=== PATIENT | male | born 1935 | race Caucasian/White ===

== ENCOUNTER 2017-10-29 09:18 | Inpatient (IN) | payer OTHER, MEDICARE ==
[~2017-10-29] VITALS: Ht 175.3 cm; Wt 77.1 kg
[~2017-10-29 09:18] MED LIST: PREDNISONE20 M1 PO; SIMVASTATIN40 M1 PO
[2017-10-29 10:15] LABS: ABSOLUTE BASOPHIL COUNT 0 /CUMM (0.0-0.2); ABSOLUTE EOSINOPHIL COUNT 0.1 /CUMM (0.0-0.7); ABSOLUTE GRANULOCYTE CT 14.5 /CUMM (1.4-6.5); ABSOLUTE LYMPH COUNT 0.6 /CUMM (1.2-3.4); ABSOLUTE MONOCYTE COUNT 1.2 /CUMM (0.10-0.60); BASOPHIL % 0 % (0.0-2.0); EOSINOPHIL % 0.6 % (0-5); GRANULOCYTE % 88.4 % (42.2-75.2); HEMATOCRIT 39.6 % (42-52); MEAN CORPUSCULAR HGB 29.7 PG (27.0-31.0); MEAN CORPUSCULAR HGB CONC 34.1 G/DL (33.0-37.0); PLATELET COUNT 211 /CUMM (130-400); RBC DISTRIBUTION WIDTH 16.9 % (11.5-14.5); RED BLOOD CELL CT 4.55 /CUMM (4.70-6.10); WHITE BLOOD CELL COUNT 16.4 /CUMM (4.8-10.8)
--- NOTE | 2017-10-29 11:08 | ED MVC/FALL/TRAUMA COMPLAINT ---
History of Present Illness General Chief Complaint: Fall Stated Complaint: BIBA LT LEG/LT SHOULDER PAIN S/P FALL 10/27 Source: patient, old records, friend Exam Limitations: no limitations Vital Signs & Intake/Output Vital Signs & Intake/Output Vital Signs Date Time Temp Pulse Resp B/P B/P Pulse O2 O2 Flow FiO2 Mean Ox Delivery Rate 10/29 1328 97.4 98 20 139/76 97 Room Air 10/29 1224 97.9 10/29 1126 97.9 90 20 136/84 97 Room Air 10/29 0924 98.1 88 20 128/84 97 Room Air Allergies Coded Allergies: NO KNOWN ALLERGIES (12/26/11) Reconcile Medications Prednisone 20 MG TABLET 40 MG PO BID ITP Simvastatin (Simvastatin*) 40 MG TABLET 1 TAB PO DAILY HIGH CHOLESTEROL ( Reported) Triage Note: PT BIBA FROM HOME WITH INCREASED WEAKNESS AND DIFFICULTY WALKING. STATES THAT HE FELL X3 DAYS AGO ONTO HIS LEFT SIDE. ALSO COMPLAINING OF LOWER BACK PAIN. REPORTS THAT HE HAS A BASELINE OF DIFFICULTY WALKING. 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 SAT 97%. BRUSING TO LT SHOULDER REGION. DENIES ANY CP/SOB. Triage Nurses Notes Reviewed? yes Onset: 2 days Duration: day(s):, constant, continues in ED, getting worse Timing: recent history Severity: severe Injuries/Fall Location: upper extremity, back, lower extremity Method of Injury: direct blow, fall Loss of Consciousness: no loss of consciousness Modifying Factors: Worsens With: movement, palpation. Associated Symptoms: trouble walking HPI: One week prior to admission patient was put on amoxicillin for upper respiratory infection and cough. 2 days prior to admission patient lost his balance and fell onto his left side complaining of left shoulder and low back left knee pain that is now severe and he is unable to get out of bed or ambulate. He denies fever chills nausea vomiting diarrhea abdominal pain chest pain shortness breath headache dysuria rash bleeding. Past History Travel History Traveled to [place] past 21 day No Medical History Any Pertinent Medical History? 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 No Review of Systems Review of Systems Constitutional: Reports: no symptoms. Eyes: Reports: no symptoms. Ears, Nose, Throat, Mouth: Reports: no symptoms. Respiratory: Reports: no symptoms. Cardiovascular: Reports: no symptoms. Gastrointestinal/Abdominal: Reports: no symptoms. Genitourinary: Reports: no symptoms. Musculoskeletal: Reports: no symptoms, see HPI, back pain, muscle pain. Skin: Reports: no symptoms. Neurological/Psychological: Reports: no symptoms. All Other Systems: Reviewed and Negative Physical Exam Physical Exam General Appearance: well developed/nourished, alert, awake, anxious, severe distress Head: atraumatic, normal appearance Eyes: Bilateral: normal appearance, PERRL, EOMI, normal inspection. Ears, Nose, Throat, Mouth: hearing grossly normal, moist mucous membrane Neck: normal inspection, supple, full range of motion, normal alignment Respiratory: chest non-tender, no respiratory distress, quiet respiration, lungs clear Cardiovascular: regular rate/rhythm, normal peripheral pulses, norml femoral pulses equa Peripheral Pulses: 4+ carotid (R), 4+ carotid (L) Gastrointestinal: normal bowel sounds, soft, non-tender, no organomegaly Back: normal inspection, vertebral tenderness (TL spine bilateral), decreased range of motion, muscle spasm Extremities: bony-point tenderness, limited range of motion, straight leg raised , unable to bear weight, no ligament instability, ecchymosis L shoulder w LROM L knee abrasion / tenderness Neurologic/Psych: no motor/sensory deficits, awake, alert, oriented x 3, normal gait, normal mood/affect, mobility engineer II-XII nml as tested Skin: intact, normal color, warm/dry Core Measures ACS in differential dx? No CVA/TIA Diagnosis No Sepsis Present: No Sepsis Focused Exam Completed? No Progress Differential Diagnosis: C/T/L spine injury, ext injury, pelvis injury Plan of Care: Orders Procedure Date/time Status Regular Diet 10/29 D Active Durable Medical Equipment 10/29 1427 Active OXYGEN SETUP (GEN) 10/29 1407 Active Saline Lock 10/29 1407 Active Admit to inpatient 10/29 1407 Active Vital Signs 10/29 1407 Active Activity/Ambulation 10/29 1407 Active RAPID VIRAL INFLUENZA A 10/29 1407 Active Code Status 10/29 1407 Active XRY-SHOULDER COMPLETE-LEFT 10/29 1012 Active XRY-HIP 2-3 VIEWS, LEFT 10/29 1012 Active XRY-CHEST XRAY, SINGLE VIEW 10/29 1012 Active TOTAL TRIODOTHYROXINE 10/29 1005 Complete FREE T4 10/29 1005 Complete TSH REFLEX 10/29 0948 Complete TROPONIN LEVEL 10/29 0948 Complete MAGNESIUM 10/29 0948 Complete COMPREHENSIVE METABOLIC PANEL 10/29 0948 Complete CBC WITHOUT DIFFERENTIAL 10/29 0948 Complete EKG 10/29 0948 Active Laboratory Tests 10/29/17 1005: Anion Gap 10, Estimated GFR > 60, BUN/Creatinine Ratio 29.0 H, Glucose 150 H, Calcium 9.2, Magnesium 1.9, Total Bilirubin 1.5 H, AST 39, ALT 54, Alkaline Phosphatase 62, Troponin I 0.03, Total Protein 6.7, Albumin 3.7, Globulin 3.0, Albumin/Globulin Ratio 1.2, Free T4 1.44, Total T3 0.92 L, TSH &T3 &Free T4 Intrp 6.840 H, CBC w Diff MAN DIFF ORDERED, RBC 4.55 L, MCV 87.0, MCH 29.7, MCHC 34.1, RDW 16.9 H, MPV 8.0, Gran % 88.4 H, Lymphocytes % 3.8 L, Monocytes % 7.2, Eosinophils % 0.6, Basophils % 0, Absolute Granulocytes 14.5 H, Segmented Neutrophils 82 H, Absolute Lymphocytes 0.6 L, Lymphocytes 5 L, Monocytes 12 H, Absolute Monocytes 1.2 H, Eosinophils 1, Absolute Eosinophils 0.1, Absolute Basophils 0, Platelet Estimate VERIFIED BY SMEAR, Normocytic RBCs VERIFIED, Normochromic RBCs VERIFIED Microbiology 10/29 1425 NASOPHARYN: Influenza Virus A & B Rapid Smear - RECD Diagnostic Imaging: Viewed by Me: Radiology Read, CT Scan. Discussed w/RAD: Radiology Read, CT Scan. Radiology Impression: L1 vertebral compression fracture with a small posterior superior bony component but no spinal canal compromise. There is a right L1 transverse process fracture without displacement. No additional fractures seen in lumbar spine. There are wedge deformities of T7, T8 and T9 vertebra likely old. No acute compression fracture suspected in thoracic spine. 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 AP dimension is not accurate as the anterior margin of aorta is not in the [id number]., L distal clavicle fx CXR Impression: no acute abnormality Initial ED EKG: normal axis, normal intervals, normal p-waves, normal QRS complex, rhythm (sinus tachycardia), nonspecific ST T wave chg Prior EKG: changed Rhythm Strip: sinus tachycardia Comments: Unable to get out of bed with assist of 2 secondary to pain of back, shoulder. Departure Departure Disposition: STILL A PATIENT Condition: Stable Clinical Impression Primary Impression: Compression fracture of lumbosacral spine Secondary Impressions: Fall at home, Fracture of clavicle, left, closed, Fracture of transverse process of lumbar vertebra, Leukocytosis Referrals: Ki Coppola MD (PCP/Family) Departure Forms: Customer Survey General Discharge Information Admission Note Spoke With: Savanah Todd MD Documentation of Exam: Documentation of any treatments & extenuating circumstances including Concerns Regarding Discharge (functional status, medication knowledge or non-compliance, living conditions, etc.) that warrant an admission rather than observation: Analgesia medication adjustment physical therapy ensure safety continuing care discharge planning Procedures Splinting Location: L shoulder immobilizer Manual Alignment Performed: No Pre-Made Type: shoulder immobilizer Splint Applied By: splint applied by other Pre-Proc Neuro Vasc Exam: normal Post-Proc Neuro Vasc Exam: normal ED Attending Observation Initial Observation Note: I have seen and personally examined KI QUINTERO JR on 10/29/17 at 1429. I agree with the current emergency department documentation. The disposition (admission or discharge) is uncertain at this time, he needs a period of observation for the following reason(s): The ED Nurse caring for this patient has been personally informed as to what the patient is being observed for.
--- NOTE | 2017-10-29 12:19 | RADIOLOGY REPORT ---
EXAMINATION: XR KNEE, LEFT CLINICAL INFORMATION: Pain after fall COMPARISON: None TECHNIQUE: Four views of the left knee. FINDINGS: Alignment is normal. No acute fracture, subluxation or joint effusion. Small marginal osteophytes of the mildly degenerated patellofemoral joint. Chondrocalcinosis of medial and lateral menisci. Atherosclerotic calcification of peripheral vessels. Minimal soft tissue swelling in the prepatellar/infrapatellar region. IMPRESSION: 1. No acute fracture or subluxation at the knee. 2. Mild osteoarthrosis of the patellofemoral joint. 3. 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
--- NOTE | 2017-10-29 12:57 | CT SCAN REPORT ---
EXAMINATION: CT THORACIC AND LUMBAR SPINE. CLINICAL INFORMATION: Fall, back pain. COMPARISON: None TECHNIQUE: 2.5 mm thin axial and reformatted 2 mm thin sagittal and coronal images of thoracic and lumbar spine were obtained. DLP [id number]. FINDINGS: THORACIC SPINE: There is normal thoracic kyphosis. There is mild anterior wedging of T7, T8 and T9 vertebra. Rest of the vertebral heights, alignment and disc heights are normal. There is no visible acute fracture, dislocation or lytic process. The paravertebral soft tissues are normal. There is diffuse emphysema both lung bases with less changes. There is a dilatation of descending thoracic aorta measuring 3.0 x 3.0 cm. There is no fracture involving any of the ribs or the posterior elements. LUMBAR SPINE: On sagittal images there is normal lumbar lordosis. There is an L1 compression fracture with a small bony posterior superior component. There is nondisplaced right L1 transverse fracture. The vertebral alignment and heights are normal. The disc heights are preserved. There are posterior annular calcification at L2-L3 and L4-L5 disc level with underlying diffuse bulge with mild spinal canal stenosis. Rest of the disc levels are unremarkable except for mild posterior spondylosis at L5-S1 disc level. There is a saccular aneurysm into L3 vertebra measuring approximately 4.2 cm in AP and 5.1 cm transverse. The anterior border is not in the [id number]. Portable soft tissues are normal. IMPRESSION: L1 vertebral compression fracture with a small posterior superior bony component but no spinal canal compromise. There is a right L1 transverse process fracture without displacement. No additional fractures seen in lumbar spine. There are wedge deformities of T7, T8 and T9 vertebra likely old. No acute compression fracture suspected in thoracic spine. 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 AP dimension is not accurate as the anterior margin of aorta is not in the [id number].
--- NOTE | 2017-10-29 16:06 | History & Physical ---
Kate DOUGLASS,Swathi 10/29/17 1606: General Information and HPI MD Statement: I have seen and personally examined EDMUNDO QUINTERO JR and documented this H&P. The patient is a 82 year old M who presented with a patient stated chief complaint of [weakness and back pain]. 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 Patient did have significant cough with clear phlegm production for the past few days. On Saturday but he is walking he wined himself around a rope and fell to his left side. He tried to come to ER but ER was full on that day. He went home and felt more and more weak and unable to walk, his pain progressed prompting him to come to ER. He has been chronically on steroids 20 mg, 10 mg every other day for ITP, he underwent chemoradiotherapy for hypopharyngeal carcinoma and in remission. Review of systems is positive for cough with clear phlegm. Allergies/Medications Allergies: Coded Allergies: NO KNOWN ALLERGIES (12/26/11) Home Med list Levothyroxine Sodium 88 MCG TABLET 1 TAB PO DAILY HYPOTHYROIDISM (Reported) Prednisone 10 MG TABLET 1 TAB PO EVERY OTHER DAY PLATELETS (Reported) Prednisone 20 MG TABLET 1 TAB PO EVERY OTHER DAY BLOOD COUNT (Reported) Simvastatin (Simvastatin*) 40 MG TABLET 1 TAB PO DAILY HIGH CHOLESTEROL ( Reported) Tylenol With Codeine (Tylenol With Codeine #3 Tablet) 300 MG-30 MG TABLET 1 TAB PO Q4-6 PRN PRN ARTHRITIS (Reported) Compliance With Home Meds: GOOD Past History Travel History Traveled to [place] past 21 day No Medical History Neurological: NONE EENT: NONE Cardiovascular: hyperlipidemia, myocardial infarction (IWMI 1998) Respiratory: NONE Gastrointestinal: NONE Hepatic: NONE Renal: NONE Musculoskeletal: NONE Psychiatric: NONE Blood Disorders: NONE Cancer(s): HEAD AND NECK CA 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 Home Who Do You Live With? spouse Services at Home: None Smoking Status: Former Smoker ETOH Use: occasional use Functional Ability ADLs Independent: dressing, eating, toileting, bathing. Ambulation: independent IADLs Independent: shopping, housework, finances, food prep, telephone, transportation , medication admin. Review of Systems Review of Systems Constitutional: Reports: see HPI, malaise, weakness. EENTM: Reports: see HPI. Cardiovascular: Reports: see HPI. Respiratory: Reports: see HPI. GI: Reports: see HPI. Genitourinary: Reports: see HPI. Exam & Diagnostic Data Last 24 Hrs of Vital Signs/I&O Vital Signs Date Time Temp Pulse Resp B/P B/P Pulse O2 O2 Flow FiO2 Mean Ox Delivery Rate 10/29 1538 105 16 124/72 92 Room Air 10/29 1459 97.4 10/29 1328 97.4 98 20 139/76 97 Room Air 10/29 1224 97.9 10/29 1126 97.9 90 20 136/84 97 Room Air 10/29 0924 98.1 88 20 128/84 97 Room Air Physical Exam General Appearance Alert, Oriented X3, Cooperative Skin Petechiae present on lower extremities HEENT Atraumatic, PERRLA, EOMI Neck Supple, No JVD Cardiovascular Normal S1, Normal S2 Lungs Clear to Auscultation, Normal Air Movement Abdomen Normal Bowel Sounds, Soft, No Tenderness Neurological Normal Speech, Normal Tone, Sensation Intact, Cranial Nerves 3-12 NL, Reflexes 2+ Extremities No Clubbing, No Cyanosis, No Edema Vascular Normal Pulses, Pulses Symmetrical Rectal tone present Last 24 Hrs of Labs/Ed: Laboratory Tests 10/29/17 1005: Anion Gap 10, Estimated GFR > 60, BUN/Creatinine Ratio 29.0 H, Glucose 150 H, Calcium 9.2, Magnesium 1.9, Total Bilirubin 1.5 H, AST 39, ALT 54, Alkaline Phosphatase 62, Troponin I 0.03, Total Protein 6.7, Albumin 3.7, Globulin 3.0, Albumin/Globulin Ratio 1.2, Free T4 1.44, Total T3 0.92 L, TSH &T3 &Free T4 Intrp 6.840 H, CBC w Diff MAN DIFF ORDERED, RBC 4.55 L, MCV 87.0, MCH 29.7, MCHC 34.1, RDW 16.9 H, MPV 8.0, Gran % 88.4 H, Lymphocytes % 3.8 L, Monocytes % 7.2, Eosinophils % 0.6, Basophils % 0, Absolute Granulocytes 14.5 H, Segmented Neutrophils 82 H, Absolute Lymphocytes 0.6 L, Lymphocytes 5 L, Monocytes 12 H, Absolute Monocytes 1.2 H, Eosinophils 1, Absolute Eosinophils 0.1, Absolute Basophils 0, Platelet Estimate VERIFIED BY SMEAR, Normocytic RBCs VERIFIED, Normochromic RBCs VERIFIED Microbiology 10/29 1425 NASOPHARYN: Influenza Virus A & B Rapid Smear - COMP Assessment/Plan Assessment: Patient is a 82 YO M with 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 Vital signs stable, physical examination is notable for straight leg rising test positive on the right side, strength 5/5 on all 4 extremities, preserved reflexes and rectal tone. Labs did show a white count of 16.4 with 88 % granulocytes. Sodium 135. Flu negative. Imaging studies are significant for acute L1 vertebral compression fracture without any spinal canal compromise, along with wedge deformities of T7, T8, T9 (old). Also notable for Descending thoracic aneurysm of 3 cm, saccular aneurysm distal abdomen 5.1 cm. Admitted to general medicine floor Acute L1 compression fracture Patient had a fall along with previous steroid intake. Ideally he should be on calcium and vitamin D. We will keep him nothing by mouth overnight for vertebroplasty tomorrow morning. Pain control. History of ITP Continue steroids. A single stress dose of hydrocortisone 100 mg IV given in the ER. History of hypothyroidism Continue levothyroxine History of hyperlipidemia Continue atorvastatin (simvastatin at home) DVT prophylaxis Alps CODE STATUS Full code As Ranked By This Provider Problem List: 1. Compression fracture of lumbosacral spine 2. Leukocytosis Core Measures/Misc (06/02) Acute Coronary Syndrome ACS Diagnosis: No Congestive Heart Failure Congestive Heart Failure Diagnosis No Cerebrovascular Accident CVA/TIA Diagnosis: No VTE (View Protocol) VTE Risk Factors Acute Medical Illness No Mechanical VTE Prophylaxis d/t N/A MechProphylax Ordered No VTE Pharm Prophylaxis d/t NA PharmProphylax ordered Sepsis (View protocol) Sepsis Present: No Viola Vela 10/29/17 7395: Attending MD Review Statement Attending Statement Attending MD Statement: examined this patient, discuss w/resident/PA/HEALTHCARE ADMINISTRATION INTERN, agreed w/resident/PA/HEALTHCARE ADMINISTRATION INTERN, discussed with family, reviewed EMR data (avail), discussed with nursing, discussed with case mgmt, reviewed images, amended to note Attending Assessment/Plan: 81 yo male with h/o Lyme in the past, 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 He denied any dyspnea, chest pain, fevers, abdominal pain, urinary incontinenec, bowel incontinence. Patient sensations intact. He is able to lift his extrmieties. Check rectal tone labs with WBC 16.4, HB/HCT 13.5/39.6 Na 135 Cr 1.[address] spine with L1 compression fracture with no spinal central canal stenosis. A/P: Patient is admitted for L1 compression fracture for pain control. Patient will be placed on frequent neurochecks. Neurosurgery consult. IR consult for possible vertebroplasty. Patient will be continued on steroids for ITP and his plat count appears normal. resume home meds gi/dvt prophyalxis full code.
[2017-10-29] MEDS ORDERED: LEVOTHYROXINE88 MCG PO (17:30)
[2017-10-29] MEDS ORDERED: TYLENOL WITH C1 EACH PO (17:31)
[2017-10-29] MEDS ORDERED: PREDNISONE10 M2 PO (17:31)
[2017-10-29] MEDS ORDERED: PREDNISONE20 M1 PO (17:32)
[2017-10-29 18:56] VITALS: BP 130/80
[2017-10-29 23:32] VITALS: BP 112/60
--- NOTE | 2017-10-30 06:55 | RADIOLOGY REPORT ---
EXAMINATION: LEFT HIP, CHEST X-RAY, LEFT SHOULDER. CLINICAL INFORMATION: Fall, back pain. COMPARISON: None TECHNIQUE: 2 views left hip, chest one view. Left shoulder 1 view FINDINGS: CHEST: The lungs are hypoexpanded with mild haziness in both lung bases question atelectasis. Heart size enlarged. The pulmonary vascularity is prominent but no sanaz congestion seen. There is moderate spondylosis dorsal spine. LEFT HIP: AP and frog-leg views left hip reveal no visible fracture or dislocation. There is overlying vascular calcification. LEFT SHOULDER: There is a comminuted distal clavicular fracture. No subluxation or dislocation of the AC joint seen. The glenohumeral joint space is maintained and normal. No acute fracture involving the humerus or scapula. IMPRESSION: Hypoexpanded lungs with bibasilar atelectasis. No acute process. No visible acute fracture or dislocation left hip. Comminuted fracture distal left clavicle. There is no AC joint subluxation. The glenohumeral joint space is normal.
[2017-10-30 06:56] VITALS: BP 169/105
[2017-10-30 08:18] LABS: ABSOLUTE BASOPHIL COUNT 0 /CUMM (0.0-0.2); ABSOLUTE EOSINOPHIL COUNT 0.1 /CUMM (0.0-0.7); ABSOLUTE GRANULOCYTE CT 12.9 /CUMM (1.4-6.5); ABSOLUTE LYMPH COUNT 0.9 /CUMM (1.2-3.4); ABSOLUTE MONOCYTE COUNT 1.2 /CUMM (0.10-0.60); BASOPHIL % 0 % (0.0-2.0); EOSINOPHIL % 0.6 % (0-5); HEMATOCRIT 37.6 % (42-52); MEAN CORPUSCULAR HGB 29.7 PG (27.0-31.0); MEAN CORPUSCULAR HGB CONC 33.5 G/DL (33.0-37.0); MEAN CORPUSCULAR VOLUME 88.7 FL (80.0-94.0); MEAN PLATELET VOLUME 8.3 FL (7.4-10.4); PLATELET COUNT 229 /CUMM (130-400); RBC DISTRIBUTION WIDTH 17.8 % (11.5-14.5); RED BLOOD CELL CT 4.24 /CUMM (4.70-6.10); WHITE BLOOD CELL COUNT 15.1 /CUMM (4.8-10.8)
--- NOTE | 2017-10-30 08:21 | PN- Housestaff ---
Maxwell DOUGLASS,[facility] 10/30/17 0821: Subjective Follow-up For: L1 compression fracture Subjective: No acute events overnight. Still complains of back pain. Refusing MRI before vertebroplasty tomorrow. Review of Systems Constitutional: Reports: see HPI. Cardiovascular: Reports: no symptoms. Respiratory: Reports: no symptoms. Gastrointestinal: Reports: no symptoms. Genitourinary: Reports: no symptoms. Musculoskeletal: Reports: back pain. Objective Last 24 Hrs of Vital Signs/I&O Vital Signs Date Time Temp Pulse Resp B/P B/P Pulse O2 O2 Flow FiO2 Mean Ox Delivery Rate 10/30 2213 98.4 108 20 122/74 94 Nasal 2.0L Cannula 10/30 1600 Nasal 2.0L Cannula 10/30 1411 98.8 110 20 120/68 94 Nasal 2.0L Cannula 10/30 0823 110/80 10/30 0800 Nasal 2.0L Cannula 10/30 0656 98.3 71 20 169/105 91 Nasal 2.0L Cannula Intake & Output 10/31 0800 10/31 0000 10/30 1600 Intake Total 325 Output Total 300 Balance -300 325 Intake, Oral 325 Output, Urine 300 Physical Exam General Appearance: Alert, Cooperative, No Acute Distress Cardiovascular: systolic murmur Lungs: Clear to Auscultation, Normal Air Movement Abdomen: Normal Bowel Sounds, Soft, No Tenderness Extremities: LE sensation intact Vascular: 2+ radial pulses Current Medications: Current Medications Sig/Kia Start time Last Medication Dose Route Stop Time Status Admin Acetaminophen 650 MG Q6P PRN 10/29 1730 AC PO Atorvastatin Calcium 20 MG 1700 10/30 1700 AC 10/30 PO 1656 Calcium/Vitamin D 500 MG BID 10/30 2200 10/30 PO 2202 Calcium/Vitamin D 500 MG DAILY 10/30 1000 DC 10/30 PO 0819 Hydrocodone Bitart/ 1 TAB Q6P PRN 10/29 1730 AC 10/30 Acetaminophen PO 2202 Levothyroxine Sodium 0.088 MG DAILY AC 10/30 0700 AC 10/30 PO 0619 Morphine Sulfate 2 MG Q4P PRN 10/29 1730 AC IV Patient Medication 1 ED ONE ONE 10/30 1145 DC Teaching ED 10/30 1146 Polyethylene Glycol 17 GM DAILY PRN 10/30 1015 AC PO Prednisone 20 MG Q48 10/31 1000 AC PO Prednisone 10 MG Q48 10/30 1000 AC 10/30 PO 0819 Last 24 Hrs of Lab/Ed Results Last 24 Hrs of Labs/Mics: Laboratory Tests 10/30/17 0645: Anion Gap 10, Estimated GFR > 60, BUN/Creatinine Ratio 33.3 H, 25-OH Vitamin D Total 13.3 L, CBC w Diff NO MAN DIFF REQ, RBC 4.24 L, MCV 88.7, MCH 29.7, MCHC 33.5, RDW 17.8 H, MPV 8.3, Gran % 85.4 H, Lymphocytes % 5.9 L, Monocytes % 8.1, Eosinophils % 0.6, Basophils % 0, Absolute Granulocytes 12.9 H, Absolute Lymphocytes 0.9 L, Absolute Monocytes 1.2 H, Absolute Eosinophils 0.1, Absolute Basophils 0 10/30/17 0230: Urinalysis MOD H, Urine Color NOLVIA, Urine Clarity CLEAR, Urine pH 6.0, Ur Specific [place] 1.025, Urine Protein TRACE H, Urine Ketones TRACE H, Urine Nitrite NEG, Urine Bilirubin NEG@ICTO, Urine Urobilinogen 1.0, Ur Leukocyte Esterase NEG, Ur Microscopic SEDIMENT EXAMINED, Urine WBC RARE, Ur Epithelial Cells RARE, Urine Bacteria FEW H, Urine Mucus MOD H, Urine Hemoglobin NEG, Urine Glucose NEG Assessment/Plan Assessment: A: Patient is a 82 YO M with 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 Vital signs stable, physical examination is notable for straight leg rising test positive on the right side, strength 5/5 on all 4 extremities, preserved reflexes and rectal tone. Labs did show a white count of 16.4 with 88 % granulocytes. Sodium 135. Flu negative. Imaging studies are significant for acute L1 vertebral compression fracture without any spinal canal compromise, along with wedge deformities of T7, T8, T9 (old). Also notable for Descending thoracic aneurysm of 3 cm, saccular aneurysm distal abdomen 5.1 cm. Admitted to general medicine floor P: #Acute L1 compression fracture Patient had a fall along with previous steroid intake. L1 compression fracutre T7-T9 wedge deformities L clavicle fracture -nothing by mouth overnight for vertebroplasty tomorrow morning. Patient denied preop MRI -f/u preop INR -cont calcium and vitamin D. -Pain control. -outpatient endocrinology follow up for osteoporsis work up #leukocytosis WBC 16.4 -> 15.1 -Most likely 2/2 to steroids. 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 -outpatient vascular f/u #History of ITP -Continue steroids. A single stress dose of hydrocortisone 100 mg IV given in the ER. #History of hypothyroidism -Continue levothyroxine #History of hyperlipidemia -Continue atorvastatin (simvastatin at home) DVT prophylaxis Alps CODE STATUS Full code Problem List: 1. Fracture of clavicle, left, closed 2. Fracture of transverse process of lumbar vertebra 3. 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 He denied any dyspnea, chest pain, fevers, abdominal pain, urinary incontinenec, bowel incontinence. Patient sensations intact. He is able to lift his extrmieties. Positive rectal tone. CT spine with L1 compression fracture with no spinal central canal stenosis. A/P: Patient admitted for L1 compression fracture for pain control. Patient will be placed on frequent neurochecks. IR consulted for possible vertebroplasty. Patient will be continued on steroids for ITP and his plat count appears normal. PT consult. resume home meds gi/dvt prophyalxis full code.
[2017-10-30 08:23] VITALS: BP 110/80
[2017-10-30 08:53] LABS: GRANULOCYTE % 85.4 % (42.2-75.2)
[2017-10-30 14:11] VITALS: BP 120/68
--- NOTE | 2017-10-30 15:03 | INTERVENTIONAL RADIOLOGY RPT ---
INTERVENTIONAL RADIOLOGY CONSULTATION FOR L1 COMPRESSION FRACTURE Mr. Mantilla is a very pleasant 82-year-old male who was in good overall health until he suffered a fall 4 days ago, injuring his left clavicle and back. He notes he tripped over his 's oxygen tubing and fell straight back into a door jam and onto the ground. He noticed instant lower back pain which he rated at a 10/10. He required a neighbor's assistance to help him up. His back pain persisted for 2 days until he came to the hospital yesterday for treatment. The patient notes that the pain did not improve over those few days with bed rest and pain relieving medication. On physical examination, the patient had difficulty rolling onto his side due to his back pain. His lower back is tender upon palpable examination, particularly in the region of the thoracolumbar junction. The patient indicated no pain to palpation of the upper and middle thoracic spine or lower lumbar spine. The patient underwent a lumbar spine CT yesterday which demonstrated an acute compression fracture of the L1 vertebral body with approximately 30% height loss. I had a long discussion today with the patient about the benefits of a vertebral augmentation. The benefits include pain relief, stabilization of the fracture, and prevention of further collapse. I also explained the risks of the procedure. The risks discussed included nontarget cement, nerve injury, hematoma which could occur within the epidural space, CSF leak, DVT/PE, and rarely paralysis. Additionally, I explained the full benefit of the procedure may take up to 2 months. There may also be increased pain in the first few days following the procedure. We discussed the alternatives to vertebral augmentation which included conservative management utilizing medications for pain control. I expressed my desire for Mr. Mantilla to undergo a lumbar spine MRI to evaluate for the presence of edema and to ensure there was no involvement of adjacent levels. Unfortunately, the patient is extremely, claustrophobic and did not want to undergo an MRI examination under any circumstance. We discussed the potential draw back of not having MRI imaging prior to this procedure, however, given his good prior health, a documented fall within the last 5 days and immediate back pain after the fall, I agreed to proceed with an L1 vertebral augmentation without an MRI. We discussed if there was in fact another involved level which was not visualized on yesterday's CT scan that he may not obtain optimal pain relief from an L1 vertebral augmentation. The patient was willing to accept this risk. The case was discussed with the patient's primary team. The case has been scheduled for 10:00 AM tomorrow with the assistance of the anesthesia department. Approximately 30 minutes were spent consulting the patient regarding results and treatment plan.
[2017-10-30 22:13] VITALS: BP 122/74
[2017-10-31 06:39] VITALS: BP 160/90
[2017-10-31 08:17] LABS: ABSOLUTE BASOPHIL COUNT 0 /CUMM (0.0-0.2); ABSOLUTE EOSINOPHIL COUNT 0.1 /CUMM (0.0-0.7); ABSOLUTE LYMPH COUNT 0.9 /CUMM (1.2-3.4); ABSOLUTE MONOCYTE COUNT 1.2 /CUMM (0.10-0.60); BASOPHIL % 0.1 % (0.0-2.0); EOSINOPHIL % 0.7 % (0-5); HEMATOCRIT 36.1 % (42-52); MEAN CORPUSCULAR HGB 29.7 PG (27.0-31.0); MEAN CORPUSCULAR HGB CONC 33.5 G/DL (33.0-37.0); MEAN CORPUSCULAR VOLUME 88.7 FL (80.0-94.0); MEAN PLATELET VOLUME 8.2 FL (7.4-10.4); PLATELET COUNT 249 /CUMM (130-400); RBC DISTRIBUTION WIDTH 17.6 % (11.5-14.5); RED BLOOD CELL CT 4.07 /CUMM (4.70-6.10); WHITE BLOOD CELL COUNT 17.2 /CUMM (4.8-10.8)
[2017-10-31 08:34] LABS: PT 12.5 SEC (9.4-12.5); PTT 25 SEC (25-37)
[2017-10-31 08:37] VITALS: BP 130/72
--- NOTE | 2017-10-31 08:45 | PN- Housestaff ---
Agatha Linares MD,[facility] 10/31/17 0845: Subjective Follow-up For: L1 compression fracture Subjective: Patient visited today, was lying in bed in no acute distress, was alert and oriented. reported back pain with motion, could not role in the bed. No fever or chills, no shortness of breathing, no chest pain, no other events. Reported limitation of moving LLE due to pain in back and weakness. Is NPO for vertebral augmentation today. No abdominal distansion, planned to do bladder scan. Review of Systems Constitutional: Reports: see HPI. Objective Last 24 Hrs of Vital Signs/I&O Vital Signs Date Time Temp Pulse Resp B/P B/P Pulse O2 O2 Flow FiO2 Mean Ox Delivery Rate 10/31 0837 98.2 88 20 130/72 96 Nasal 2.0L Cannula 10/31 0800 93 Nasal 2.0L Cannula 10/31 0639 98.4 90 20 160/90 93 Nasal 2.0L Cannula 10/31 0000 Nasal 2.0L Cannula 10/30 2213 98.4 108 20 122/74 94 Nasal 2.0L Cannula 10/30 1600 Nasal 2.0L Cannula 10/30 1411 98.8 110 20 120/68 94 Nasal 2.0L Cannula Intake & Output 10/31 1600 10/31 0800 10/31 0000 Intake Total 240 Output Total 300 Balance 240 -300 Intake, Oral 240 Output, Urine 300 Physical Exam General Appearance: Alert, Oriented X3, Cooperative, No Acute Distress Skin Temp/Moisture Exam: Warm/Dry Sepsis Skin Exam (color): Normal for Ethnicity HEENT: Atraumatic, EOMI, Mucous Membr. moist/pink Cardiovascular: Normal S1, Normal S2 Lungs: Clear to Auscultation Abdomen: Soft, No Tenderness Neurological: Normal Speech, LLE is 4/5 as noted above, RLE 5/5 but motion with pain in back Extremities: No Edema, Could not role for spine tenderness evaluation Current Medications: Current Medications Sig/Kia Start time Last Medication Dose Route Stop Time Status Admin Acetaminophen 650 MG Q6P PRN 10/29 1730 AC PO Atorvastatin Calcium 20 MG 1700 10/30 1700 AC 10/30 PO 1656 Calcium/Vitamin D 500 MG BID 10/30 2200 AC 10/31 PO 0835 Hydrocodone Bitart/ 1 TAB Q6P PRN 02/13 1730 AC 10/30 Acetaminophen PO 2202 Levothyroxine Sodium 0.088 MG DAILY AC 10/30 0700 AC 10/31 PO 0507 Lidocaine 0 .STK-MED ONE 10/31 0913 DC .ROUTE Morphine Sulfate 2 MG Q4P PRN 10/29 1730 AC 10/31 IV 0505 Polyethylene Glycol 17 GM DAILY 10/31 1000 AC PO Polyethylene Glycol 17 GM DAILY PRN 10/30 1015 AC PO Prednisone 20 MG Q48 10/31 1000 AC 10/31 PO 0835 Prednisone 10 MG Q48 10/30 1000 AC 10/30 PO 0819 Last 24 Hrs of Lab/Ed Results Last 24 Hrs of Labs/Mics: Laboratory Tests 10/31/17 0616: Anion Gap 11, Estimated GFR > 60, BUN/Creatinine Ratio 36.7 H, PT 12.5, INR 1.19 H, APTT 25, CBC w Diff NO MAN DIFF REQ, RBC 4.07 L, MCV 88.7, MCH 29.7, MCHC 33.5, RDW 17.6 H, MPV 8.2, Gran % 87.2 H, Lymphocytes % 4.9 L, Monocytes % 7.1, Eosinophils % 0.7, Basophils % 0.1, Absolute Granulocytes 15.0 H, Absolute Lymphocytes 0.9 L, Absolute Monocytes 1.2 H, Absolute Eosinophils 0.1 , Absolute Basophils 0 Assessment/Plan Assessment: Patient is a 82 YO M with PMH 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 Vital signs stable, physical examination is notable for straight leg rising test positive on the right side, strength 5/5 on all 4 extremities, preserved reflexes and rectal tone. Labs did show a white count of 16.4 with 88% granulocytes. Sodium 135. Flu negative. Imaging studies are significant for acute L1 vertebral compression fracture without any spinal canal compromise, along with wedge deformities of T7, T8, T9 (old). Also notable for Descending thoracic aneurysm of 3 cm, saccular aneurysm distal abdomen 5.1 cm. Admitted to general medicine floor for management of following conditions: #Acute L1 compression fracture Patient had a fall along with previous steroid intake. L1 compression fracutre T7-T9 wedge deformities L clavicle fracture Patient was nothing by mouth overnight for vertebroplasty - planned for vertebroplasty today -cont calcium and vitamin D. -Pain control. -outpatient endocrinology follow up for osteoporsis work up #leukocytosis WBC 16.4 -> 17.2 -Most likely 2/2 to steroids. 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 -outpatient vascular f/u #History of ITP -Continue steroids. A single stress dose of hydrocortisone 100 mg IV given in the ER. #History of hypothyroidism -Continue levothyroxine #History of hyperlipidemia -Continue atorvastatin (simvastatin at home) DVT prophylaxis Alps CODE STATUS Full code Problem List: 1. Compression fracture of lumbosacral spine Pain Ratin (in AM, improved later) Pain Location: Spine with motion Pain Goal: Pain 4 or less Pain Plan: Augmentation today Tomorrow's Labs & Rationales: CBC BEP MirianBridger willisfela 10/31/17 1257: Attending MD Review Statement Attending Statement Attending MD Statement: examined this patient, discuss w/resident/PA/FORENSIC TOXICOLOGIST, agreed w/resident/PA/FORENSIC TOXICOLOGIST, discussed with family, reviewed EMR data (avail), discussed with nursing, discussed with case mgmt, reviewed images, amended to note Attending Assessment/Plan: 81 yo male with h/o Lyme in the past, 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 He denied any dyspnea, chest pain, fevers, abdominal pain, urinary incontinenec, bowel incontinence. Patient sensations intact. He is able to lift his extrmieties. Positive rectal tone. CT spine with L1 compression fracture with no spinal central canal stenosis. A/P: Patient admitted for L1 compression fracture for pain control. IR consulted for vertebroplasty today. Patient will be continued on steroids for ITP and his plat count appears normal. PT consult for dc planning. resume home meds gi/dvt prophyalxis full code.
[2017-10-31 09:10] LABS: GRANULOCYTE % 87.2 % (42.2-75.2)
[2017-10-31 13:36] VITALS: BP 140/80
[2017-10-31 22:05] VITALS: BP 136/82
[2017-11-01 06:45] VITALS: BP 190/68
[2017-11-01 06:48] VITALS: BP 183/64
[2017-11-01 07:16] VITALS: BP 150/80
[2017-11-01 07:52] LABS: ABSOLUTE BASOPHIL COUNT 0 /CUMM (0.0-0.2); ABSOLUTE EOSINOPHIL COUNT 0.1 /CUMM (0.0-0.7); ABSOLUTE GRANULOCYTE CT 13.9 /CUMM (1.4-6.5); ABSOLUTE LYMPH COUNT 0.8 /CUMM (1.2-3.4); ABSOLUTE MONOCYTE COUNT 1.2 /CUMM (0.10-0.60); BASOPHIL % 0.2 % (0.0-2.0); EOSINOPHIL % 0.4 % (0-5); GRANULOCYTE % 86.9 % (42.2-75.2); HEMATOCRIT 36.5 % (42-52); MEAN CORPUSCULAR HGB 29.8 PG (27.0-31.0); MEAN CORPUSCULAR HGB CONC 33.5 G/DL (33.0-37.0); PLATELET COUNT 239 /CUMM (130-400); RBC DISTRIBUTION WIDTH 17.5 % (11.5-14.5)
[2017-11-01] MEDS ORDERED: OS-CAL 500+D31 EACH PO (07:55)
--- NOTE | 2017-11-01 07:59 | Patient Discharge Instructions ---
Discharge Instructions General Discharge Information You were seen/treated for: L1 compression fracture You had these procedures: Vertebral augmentation Watch for these problems: Severe back pain, weakness, change in sensation, incontinence, change in urination or defecation, or worsening of any other symptoms Special Instructions: Please follow-up with your PCP within one week of discharge. Please follow with your bead cutter within 1 week of discharge. Please come back to hospital if symptoms worsen. Please follow with your interventional radiologist within 1month of discharge. Diet Continue normal diet: No Recommended Diet: Heart Healthy Activity Full Activity/No Limits: No Activity Self Limited: Yes Acute Coronary Syndrome Inclusion Criteria At DC or during hospital stay patient has or had the following: ACS DIAGNOSIS No Discharge Core Measures Meds if any: Prescribed or Continued at Discharge Meds if any: NOT Prescribed or Continued at Discharge Congestive Heart Failure Inclusion Criteria At DC or during hospital stay patient has or had the following: CHF DIAGNOSIS No Discharge Core Measures Meds if any: Prescribed or Continued at Discharge Meds if any: NOT Prescribed or Continued at Discharge Cerebrovascular accident Inclusion Criteria At DC or during hospital stay patient has or had the following: CVA/TIA Diagnosis No Discharge Core Measures Meds if any: Prescribed or Continued at Discharge Meds if any: NOT Prescribed or Continued at Discharge Venous thromboembolism Inclusion Criteria VTE Diagnosis No VTE Type NONE VTE Confirmed by (Test) NONE Discharge Core Measures - Per Current guidelines, there needs to be overlap - treatment for the first 5 days of Warfarin therapy. - If discharged on Warfarin prior to 5 days of - overlap therapy, the patient will need to be - assessed for post discharge needs including - *Post discharge parental anticoagulation - *Warfarin and/or parental anticoagulation education - *Follow up date to check INR post discharge At least 5 days overlap therapy as Inpatient No Meds if any: Prescribed or Continued at Discharge Note: Overlap Therapy is Warfarin and Anticoagulant Meds if any: NOT Prescribed or Continued at Discharge
[2017-11-01 08:00] VITALS: BP 150/80
--- NOTE | 2017-11-01 08:22 | PN- Housestaff ---
Agatha Linares MD,[facility] 11/01/17 0822: Subjective Follow-up For: L1 Compression fracture Subjective: Patient visited today, was lying in bed in no acute distress, was alert and oriented. Reported significant improvement in back pain after procedure yesterday. Motor improved compared to yesterday, still some pain with left leg motion, no sensory deficit. No fever or chills, no shortness of breathing, no chest pain, no other events. PT evalaution and treat today. Review of Systems Constitutional: Reports: see HPI. Objective Last 24 Hrs of Vital Signs/I&O Vital Signs Date Time Temp Pulse Resp B/P B/P Pulse O2 O2 Flow FiO2 Mean Ox Delivery Rate 11/01 0926 Nasal 2.0L Cannula 11/01 0716 150/80 11/01 0648 183/64 11/01 0645 98.5 77 18 190/68 95 Nasal 2.0L Cannula 11/01 0000 Nasal 2.0L Cannula 10/31 2205 97.7 95 18 136/82 94 Nasal 2.0L Cannula 10/31 1600 Nasal 2.0L Cannula 10/31 1336 97.8 88 20 140/80 96 Intake & Output 11/01 1600 11/01 0800 11/01 0000 Intake Total 50 Output Total 450 350 Balance -400 -350 Intake, Oral 50 Output, Urine 450 350 Physical Exam General Appearance: Alert, Oriented X3, Cooperative, No Acute Distress Skin Temp/Moisture Exam: Warm/Dry Sepsis Skin Exam (color): Normal for Ethnicity HEENT: Atraumatic, EOMI, Mucous Membr. moist/pink Cardiovascular: Regular Rate, Normal S1, Normal S2 Lungs: Normal Air Movement Abdomen: Soft, No Tenderness Neurological: Normal Speech, Motor 4/5 in LLE, improved compared to yesterday, sensory normal Extremities: No Edema, No spinal tenderness Current Medications: Current Medications Sig/Kia Start time Last Medication Dose Route Stop Time Status Admin Acetaminophen 650 MG Q6P PRN 10/29 1730 AC PO Atorvastatin Calcium 20 MG 1700 10/30 1700 AC 10/31 PO 1627 Calcium/Vitamin D 500 MG BID 10/30 2200 AC 11/01 PO 0840 Fentanyl Citrate 200 MCG .STK-MED ONE 10/31 1016 DC IM 10/31 1017 Hydrocodone Bitart/ 1 TAB Q6P PRN 10/29 1730 AC 10/30 Acetaminophen PO 2202 Hydrocortisone 100 MG .STK-MED ONE 10/31 1017 DC Sodium Succinate IM 10/31 1018 Levothyroxine Sodium 0.088 MG DAILY AC 10/30 0700 AC 11/01 PO 0515 Morphine Sulfate 2 MG Q4P PRN 10/29 1730 AC 10/31 IV 0505 Polyethylene Glycol 17 GM DAILY 10/31 1000 AC 11/01 PO 0842 Polyethylene Glycol 17 GM DAILY PRN 10/30 1015 AC PO Prednisone 20 MG Q48 10/31 1000 AC 10/31 PO 0835 Prednisone 10 MG Q48 10/30 1000 AC 11/01 PO 0840 Senna/Docusate Sodium 2 TAB DAILY PRN 10/31 1400 AC 11/01 PO 0840 Last 24 Hrs of Lab/Ed Results Last 24 Hrs of Labs/Mics: Laboratory Tests 11/01/17 0700: Anion Gap 11, Estimated GFR > 60, BUN/Creatinine Ratio 31.3 H, CBC w Diff NO MAN DIFF REQ, RBC 4.10 L, MCV 89.0, MCH 29.8, MCHC 33.5, RDW 17.5 H, MPV 8.0, Gran % 86.9 H, Lymphocytes % 5.2 L, Monocytes % 7.3, Eosinophils % 0.4, Basophils % 0.2, Absolute Granulocytes 13.9 H, Absolute Lymphocytes 0.8 L, Absolute Monocytes 1.2 H, Absolute Eosinophils 0.1, Absolute Basophils 0 Assessment/Plan Assessment: Patient is a 82 YO M with 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 Vital signs stable, physical examination is notable for straight leg rising test positive on the right side, strength 5/5 on all 4 extremities, preserved reflexes and rectal tone. Labs did show a white count of 16.4 with 88% granulocytes. Sodium 135. Flu negative. Imaging studies are significant for acute L1 vertebral compression fracture without any spinal canal compromise, along with wedge deformities of T7, T8, T9 (old). Also notable for Descending thoracic aneurysm of 3 cm, saccular aneurysm distal abdomen 5.1 cm. Admitted to general medicine floor for management of following conditions: #Acute L1 compression fracture Patient had a fall along with previous steroid intake. L1 compression fracutre T7-T9 wedge deformities L clavicle fracture Patient underwent vertebral augmentation procedure on 10/31/17. Reported improved pain and function after that. -cont calcium and vitamin D. -Pain control. -outpatient endocrinology/Rheum follow up for osteoporsis work up -PT evaluation and treat #leukocytosis WBC 16.4 -> 16 Chronic as patient is known to Dr Coppola. -Most likely 2/2 to steroids. 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 -outpatient vascular f/u #History of ITP -Continue steroids. A single stress dose of hydrocortisone 100 mg IV given in the ER. #History of hypothyroidism -Continue levothyroxine #History of hyperlipidemia -Continue atorvastatin (simvastatin at home) DVT prophylaxis Alps CODE STATUS Full code Patient was planned to be discharged to [facility] with recommendation to follow in outpatient. Problem List: 1. Compression fracture of lumbosacral spine 2. 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 He denied any dyspnea, chest pain, fevers, abdominal pain, urinary incontinenec, bowel incontinence. Patient sensations intact. He is able to lift his extrmieties. Positive rectal tone. CT spine with L1 compression fracture with no spinal central canal stenosis. A/P: Patient admitted for L1 compression fracture s/p vertebroplasty by IR. Pain controlled. Patient will be continued on steroids for ITP and his plat count appears normal. Constipation dulcolax suppository. monitor bowel movement. cont pain meds. PT consult for dc planning likely STR. resume home meds. await bed availabiltiy. Patient is medically stable for discharge.
--- NOTE | 2017-11-01 08:29 | Cons- Rheumatology ---
General Information and HPI Consulting Request Date of Consult: 10/31/17 Requested By: Viola Vela MD Reason for Consult: Evaluate his numerous medical and rheumatologic problems Source of Information: patient, old records Exam Limitations: no limitations History of Present Illness: This is an 82-year-old primary care patient of mine suffering from numerous medical problems who was admitted to the hospital on October 29 after falling several days earlier injuring his left shoulder and back specifically he's been having back and shoulder problems and I'm asked to evaluate him in the present setting. Essentially Rajesh has been suffering from COPD hypothyroidism hypo-vitamin D is some thrombocytopenia and history of head and neck cancer from 2011. He's been functioning at home although with increasing marital friction. 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 His current dosages at 10 mg every other day and his platelets recently have been good. He has been unable to ambulate at home since the fall with left sided back and shoulder pain. Evaluation here has shown that he has a fracture of the distal clavicle as well as a fracture of the L one transverse process on the right side. According to the radiologist's he also has a 30% compression fracture that appears new. In fact he is already had a kyphoplasty and the patient states he does feel improved with regards to his pain. Allergies/Medications Allergies: Coded Allergies: NO KNOWN ALLERGIES (12/26/11) Home Med List: Calcium Carbonate/Vitamin D3 (Os-Nelson 500+D3 Caplet) 500 MG-600 TABLET 500 MG PO BID BONE STRENGTH Levothyroxine Sodium 88 MCG TABLET 1 TAB PO DAILY HYPOTHYROIDISM (Reported) Prednisone 10 MG TABLET 1 TAB PO EVERY OTHER DAY PLATELETS (Reported) Prednisone 20 MG TABLET 1 TAB PO EVERY OTHER DAY BLOOD COUNT (Reported) Simvastatin (Simvastatin*) 40 MG TABLET 1 TAB PO DAILY HIGH CHOLESTEROL ( Reported) Tylenol With Codeine (Tylenol With Codeine #3 Tablet) 300 MG-30 MG TABLET 1 TAB PO Q4-6 PRN PRN ARTHRITIS (Reported) Review of Systems Review of Systems: He denies any chest pain or shortness of breath. 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 He has been increasingly forgetful and showing signs of dementia at home. 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 Home Who Do You Live With? spouse Services at Home: None Smoking Status: Former Smoker ETOH Use: occasional use Functional Ability ADLs Independent: dressing, eating, toileting, bathing. Ambulation: independent IADLs Independent: shopping, housework, finances, food prep, telephone, transportation , medication admin. Exam & Diagnostic Data Vital Signs and I&O Vital Signs Date Time Temp Pulse Resp B/P B/P Pulse O2 O2 Flow FiO2 Mean Ox Delivery Rate 11/01 0716 150/80 11/01 0648 183/64 11/01 0645 98.5 77 18 190/68 95 Nasal 2.0L Cannula 11/01 0000 Nasal 2.0L Cannula 10/31 2205 97.7 95 18 136/82 94 Nasal 2.0L Cannula 10/31 1600 Nasal 2.0L Cannula 10/31 1336 97.8 88 20 140/80 96 10/31 0837 98.2 88 20 130/72 96 Nasal 2.0L Cannula Intake & Output 11/01 1600 11/01 0800 11/01 0000 Intake Total 50 Output Total 450 350 Balance -400 -350 Intake, Oral 50 Output, Urine 450 350 Physical Exam: On examination he is an elderly male in no acute distress. Examination reveals an extensive ecchymosis over the distal left clavicle and shoulder extending proximately 8 cm below his subacromial region. 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 He also has a distal clavicle fracture. His platelet count is 255,000 so continuing him on alternate day prednisone is adequate. I note the last vitamin D level is low at 13.3 and he will be supplemented as an outpatient on high-dose vitamin D. His TSH is borderline high on 88 g of level thyroxine which will be adjusted also is an outpatient. Recommendations: Recommendations as per my assessment. I agree with the plan of gradual ambulation and possible transfer for short-term rehabilitation if PT does not feel he is safe to return home just yet. Consult Acknowledgment - Thank you for your consult request.
--- NOTE | 2017-11-01 08:34 | PN- Rheumatology ---
Subjective Subjective: His back and shoulder are definitely feeling improved this morning compared to admission. He has not gotten up to stand yet but physical therapy is scheduled for today he offers no respiratory complaints although does have a mild cough. His labs are good except for a mildly high white count of 17,000 which is chronic as well as a result of extra steroids given on admission. He is afebrile as well. Objective Vital Signs and I&Os Vital Signs Date Time Temp Pulse Resp B/P B/P Pulse O2 O2 Flow FiO2 Mean Ox Delivery Rate 11/01 0716 150/80 11/01 0648 183/64 11/01 0645 98.5 77 18 190/68 95 Nasal 2.0L Cannula 11/01 0000 Nasal 2.0L Cannula 10/31 2205 97.7 95 18 136/82 94 Nasal 2.0L Cannula 10/31 1600 Nasal 2.0L Cannula 10/31 1336 97.8 88 20 140/80 96 10/31 0837 98.2 88 20 130/72 96 Nasal 2.0L Cannula Intake & Output 11/01 1600 11/01 0800 11/01 0000 10/31 1600 10/31 0800 10/31 0000 Intake Total 50 600 240 Output Total 450 350 550 300 Balance -400 -350 50 240 -300 Intake, Oral 50 600 240 Output, Urine 450 350 550 300 Physical Exam: He is in no acute distress. His heart rate is 90 his blood pressures are fine. He is using nasal oxygen. Current Medications: Current Medications Sig/Kia Start time Last Medication Dose Route Stop Time Status Admin Acetaminophen 650 MG Q6P PRN 10/29 1730 AC PO Atorvastatin Calcium 20 MG 1700 10/30 1700 AC 10/31 PO 1627 Calcium/Vitamin D 500 MG BID 10/30 2200 AC 10/31 PO 2111 Fentanyl Citrate 200 MCG .STK-MED ONE 10/31 1016 DC IM 10/31 1017 Hydrocodone Bitart/ 1 TAB Q6P PRN 10/29 1730 10/30 Acetaminophen PO 2202 Hydrocortisone 100 MG .STK-MED ONE 10/31 1017 DC Sodium Succinate IM 10/31 1018 Levothyroxine Sodium 0.088 MG DAILY AC 10/30 0700 11/01 PO 0515 Lidocaine 0 .STK-MED ONE 10/31 0913 DC .ROUTE Morphine Sulfate 2 MG Q4P PRN 10/29 1730 10/31 IV 0505 Polyethylene Glycol 17 GM DAILY 10/31 1000 AC 10/31 PO 1329 Polyethylene Glycol 17 GM DAILY PRN 10/30 1015 AC PO Prednisone 20 MG Q48 10/31 1000 AC 10/31 PO 0835 Prednisone 10 MG Q48 10/30 1000 AC 10/30 PO 0819 Senna/Docusate Sodium 2 TAB DAILY PRN 10/31 1400 AC 10/31 PO 1806 Assessment/Plan Assessment: His pain from his compression fracture of his back is improved with a kyphoplasty. His left clavicle still remains tender and the region is ecchymotic he had been wearing a sling but apparently it has been removed. His other medical problems such as his dementia hypothyroidism and thrombocytopenia are stable at present. Plan: Physical therapy evaluation with gradual ambulation I feel with a walker he probably will be able to return home and be discharged in the next 24 hours. I will defer that decision to his hospitalist and physical therapy.
[2017-11-01 10:00] VITALS: BP 148/82
--- NOTE | 2017-11-01 10:14 | Discharge Summary ---
Visit Information Visit Dates Admission Date: 10/29/17 Discharge Date: 11/01/17 Hospital Course Course Attending Physician: Viola Vela MD Primary Care Physician: Ki Coppola MD Hospital Course: 82-year-old male with past medical history of ITP, some coronary artery disease, hypopharyngeal carcinoma, hypothyroidism, hyperlipidemia, presented to the emergency department after sustaining a mechanical fall injury and was found out to have sustained L1 compression fracture. Patient did not show any signs or symptoms of cauda equina syndrome or distal neurovascular injury. Successful L1 vertebral body augmentation was done on 10/31/[address] Collin Hogue and the patient is being discharged to short-term rehabilitation after being assessed by physical therapist. We have added calcium/vitamin D to his medication list. He is to follow-up with his primary care physician, chief operator synthesis, and interventional radiologist after discharge. Complications: None Allergies: Coded Allergies: NO KNOWN ALLERGIES (12/26/11) Significant Procedures: Kyphoplasty done on 10/31/2017: PROCEDURE: Fluoroscopically guided L1 vertebral augmentation CLINICAL HISTORY: 82-year-old male who suffered an L1 compression fracture after a fall 5 days ago. INTERVENTIONAL RADIOLOGIST: Collin Hogue M.D. COMPARISON IMAGING: CT thoracic/lumbar spine 10/29/2017 MEDICATION: -Sedation services were provided by the anesthesia department. Please see their note for detailed findings. -15 mL's of 1% lidocaine utilized for local anesthetic. FLUOROSCOPY TIME: 11.6 minutes DOSE AREA PRODUCT: 64.5 Gy-cm2 (clemons-centimeter squared) TECHNIQUE: Informed consent was obtained from the patient prior to the procedure. During this process, the procedure and potential alternatives were explained along with the intended outcome and benefits. The risks of the procedure, including the possibility of an unsuccessful procedure, as well as the risk of not doing the procedure were discussed. The patient was given the opportunity to ask questions regarding the procedure and appeared competent to make medical decisions. A signed consent form which documents this discussion was placed in the medical record. Following informed consent the patient was placed prone on the fluoroscopic table. A timeout procedure was performed. Sedation was induced by the anesthesia department. The back was prepped and draped in usual sterile fashion. A small skin neck was made at the appropriate level after PA and lateral fluoroscopy was utilized for targeting of the abnormal vertebral body. A transpedicular approach was utilized. Triangulation was performed. A standard Dfine 10.5-gauge needle introducer cannula was utilized. This was placed through the pedicle. Great care was utilized to avoid adjacent structures. The posterior wall of the vertebral body was traversed. After final positioning of the working cannula under fluoroscopic guidance, the introducer 10.5-gauge needle stylette was removed. Under fluoroscopic guidance, an initial cavity was created within the vertebral body by inserting a straight hollow coring cement staging osteotome into the working cannula and then into the anterior third of the vertebral body. This allowed coring and removal of cancellous bone creating a cavity within the vertebral body. A larger directional staging osteotome was then inserted through the working cannula and across the midline to specific areas within the vertebral body as the cavity was enlarged. The articulated arm was then deployed to further enlarge the cavity. The device was then withdrawn into the working cannula rotated and reinserted and articulated multiple times to enlarge the existing cavity of the L1 vertebral body. The controller from the Dfine system was turned on. The warming cartridge, delivery cables and hydraulic assembly was connected to the controller. The bone cement was mixed and the cement cartridge was filled and attached to the warming cartridge. After removal of the introducer stylette, the locking delivery cannula was attached to the cement. This was then inserted through the working cannula and into the cavity created within the vertebral body. This was then locked in place with the working cannula to establish and stabilize its position. The bone cement was converted to a ultra-high viscosity, semi-solid material and was driven through the warming cartridge. The Ultra-high viscosity cement was delivered through the locking delivery cannula to fill the cavity created by the osteotome. The mass of the ultra high viscosity cement continued to grow at 1.3 cc/minute. This expanded the cavity size while filling it. The cement was allowed to interdigitate within the fractures within the vertebral body. The cement injection was terminated after the mass of Ultra-high viscosity cement was used to interdigitate L1 and adequately fill the cavity. The locking cannula was then removed. Great care was utilized to not displace cement during removal. Great care was also utilized to avoid passing the cement through the fractures into the disc spaces. Great care was also utilized to prevent cement from passing into the spinal canal cavity. A total of 8 mL of the cement was placed into the vertebral body. This was placed in the appropriate position across the midline. The introducer was placed into the cannula to tap out the remaining cement. The needle introducer cannula was then removed. Glue was placed over the wound site after good hemostasis was achieved through manual pressure. The patient tolerated the procedure well. The patient was discharged from the department in good condition after appropriate monitoring. The patient will followup in one month. FINDINGS: There is an L1 vertebral body fracture. The superior endplate appears fractured. Successful L1 vertebral body vertebral augmentation. The bone cement appears in good position and across the midline using standard technique. COMPLICATIONS: None. IMPRESSION: Successful L1 vertebral body augmentation. PLAN: The patient will follow-up with interventional radiology in approximately one month. DICTATED BY: Collin Hogue MD DATE/TIME DICTATED:10/31/171629 INSTRUMENTATION TECHNICIAN:ZAID DATE/TIME TRANSCRIBED:10/31/171629 Pertinent Lab Results: Laboratory Tests 11/01 10/31 0700 0616 Chemistry Sodium (137 - 145 mmol/L) 141 140 Potassium (3.5 - 5.1 mmol/L) 3.8 4.1 Chloride (98 - 107 mmol/L) 104 102 Carbon Dioxide (22 - 30 mmol/L) 26 27 Anion Gap (5 - 16) 11 11 BUN (9 - 20 mg/dL) 25 H 33 H Creatinine (0.7 - 1.2 mg/dL) 0.8 0.9 Estimated GFR (>60 ml/min) > 60 > 60 BUN/Creatinine Ratio (7 - 25 %) 31.3 H 36.7 H Coagulation PT (9.4 - 12.5 SEC) 12.5 INR (0.90 - 1.17) 1.19 H APTT (25 - 37 SEC) 25 Hematology CBC w Diff NO MAN DIFF REQ NO MAN DIFF REQ WBC (4.8 - 10.8 /CUMM) 16.0 H 17.2 H RBC (4.70 - 6.10 /CUMM) 4.10 L 4.07 L Hgb (14.0 - 18.0 G/DL) 12.2 L 12.1 L Hct (42 - 52 %) 36.5 L 36.1 L MCV (80.0 - 94.0 FL) 89.0 88.7 MCH (27.0 - 31.0 PG) 29.8 29.7 MCHC (33.0 - 37.0 G/DL) 33.5 33.5 RDW (11.5 - 14.5 %) 17.5 H 17.6 H Plt Count (130 - 400 /CUMM) 239 249 MPV (7.4 - 10.4 FL) 8.0 8.2 Gran % (42.2 - 75.2 %) 86.9 H 87.2 H Lymphocytes % (20.5 - 51.1 %) 5.2 L 4.9 L Monocytes % (1.7 - 9.3 %) 7.3 7.1 Eosinophils % (0 - 5 %) 0.4 0.7 Basophils % (0.0 - 2.0 %) 0.2 0.1 Absolute Granulocytes (1.4 - 6.5 /CUMM) 13.9 H 15.0 H Absolute Lymphocytes (1.2 - 3.4 /CUMM) 0.8 L 0.9 L Absolute Monocytes (0.10 - 0.60 /CUMM) 1.2 H 1.2 H Absolute Eosinophils (0.0 - 0.7 /CUMM) 0.1 0.1 Absolute Basophils (0.0 - 0.2 /CUMM) 0 0 10/30 10/30 0645 0230 Chemistry Sodium (137 - 145 mmol/L) 139 Potassium (3.5 - 5.1 mmol/L) 3.8 Chloride (98 - 107 mmol/L) 103 Carbon Dioxide (22 - 30 mmol/L) 27 Anion Gap (5 - 16) 10 BUN (9 - 20 mg/dL) 30 H Creatinine (0.7 - 1.2 mg/dL) 0.9 Estimated GFR (>60 ml/min) > 60 BUN/Creatinine Ratio (7 - 25 %) 33.3 H 25-OH Vitamin D Total (30 - 100 ng/ml) 13.3 L Hematology CBC w Diff NO MAN DIFF REQ WBC (4.8 - 10.8 /CUMM) 15.1 H RBC (4.70 - 6.10 /CUMM) 4.24 L Hgb (14.0 - 18.0 G/DL) 12.6 L Hct (42 - 52 %) 37.6 L MCV (80.0 - 94.0 FL) 88.7 MCH (27.0 - 31.0 PG) 29.7 MCHC (33.0 - 37.0 G/DL) 33.5 RDW (11.5 - 14.5 %) 17.8 H Plt Count (130 - 400 /CUMM) 229 MPV (7.4 - 10.4 FL) 8.3 Gran % (42.2 - 75.2 %) 85.4 H Lymphocytes % (20.5 - 51.1 %) 5.9 L Monocytes % (1.7 - 9.3 %) 8.1 Eosinophils % (0 - 5 %) 0.6 Basophils % (0.0 - 2.0 %) 0 Absolute Granulocytes (1.4 - 6.5 /CUMM) 12.9 H Absolute Lymphocytes (1.2 - 3.4 /CUMM) 0.9 L Absolute Monocytes (0.10 - 0.60 /CUMM) 1.2 H Absolute Eosinophils (0.0 - 0.7 /CUMM) 0.1 Absolute Basophils (0.0 - 0.2 /CUMM) 0 Urines Urinalysis MOD H Urine Color (YEL,AMB,STR) NOLVIA Urine Clarity (CLEAR) CLEAR Urine pH (5.0 - 8.0) 6.0 Ur Specific [place] (1.001 - 1.035) 1.025 Urine Protein (NEG,<30 MG/DL) TRACE H Urine Ketones (NEG) TRACE H Urine Nitrite (NEG) NEG Urine Bilirubin (NEG) NEG@ICTO Urine Urobilinogen (0.1 - 1.0 EU/dl) 1.0 Ur Leukocyte Esterase (NEG) NEG Ur Microscopic SEDIMENT EXAMINED Urine WBC (0 - 2 /HPF) RARE Ur Epithelial Cells (NONE,FEW) RARE Urine Bacteria (NEG/NONE) FEW H Urine Mucus (FEW,NONE) MOD H Urine Hemoglobin (NEG) NEG Urine Glucose (N MG/DL) NEG Disposition Summary Disposition Principal Diagnosis: L1 Compression fracture, 2/2 Mechanical fall Additional Diagnosis: ITP (November 2014), silent coronary artery disease, hypopharyngeal carcinoma T3 N0 M0, hypothyroidism, hyperlipidemia Discharge Disposition: SNF Discharge Instructions General Discharge Information Code Status: Full Code Patient's Diet: Heart healthy diet Patient's Activity: As tolerated Follow-Up Instructions/Appts: Please follow-up with your PCP within one week of discharge. Please follow with your chief operator synthesis within 1 week of discharge. Please come back to hospital if symptoms worsen. Please follow with your interventional radiologist within 1 month of discharge. Medications at Discharge Discharge Medications: Continue taking these medications: Simvastatin (Simvastatin*) 40 MG TABLET 1 Tablet ORAL DAILY Qty = 90 Comments: Last Taken: 10/31/17 Time: 4:30 PM Levothyroxine Sodium (Levothyroxine Sodium) 88 MCG TABLET 1 Tablet ORAL DAILY Comments: Last Taken: 11/01/17 Time: 5:15 AM Tylenol With Codeine (Tylenol With Codeine #3 Tablet) 300 MG-30 MG TABLET 1 Tablet ORAL EVERY 4-6 HOURS NEEDED as needed for ARTHRITIS Comments: NOT GIVEN IN HOSPITAL Prednisone (Prednisone) 10 MG TABLET 1 Tablet ORAL EVERY OTHER DAY Qty = 60 Comments: Last Taken: 11/01/17 Time: 8:30 AM Prednisone (Prednisone) 20 MG TABLET 1 Tablet ORAL EVERY OTHER DAY Qty = 60 Comments: Last Taken: 10/31/17 Time: 8:30 AM Start taking the following new medications: Calcium Carbonate/Vitamin D3 (Os-Nelson 500+D3 Caplet) 500 MG-600 TABLET 500 Milligram ORAL TWICE DAILY Qty = 60 No Refills Comments: Last Taken: 11/01/17 Time: 8:30 AM Copies To: Mykel DOUGLASS,Reynaldo Coppola MD,Ki Kim Attending MD Review Statement Documenting Attending: Mirian DOUGLASS,Viola Other Findings: CT spine with L1 compression fracture with no spinal central canal stenosis. A/P: Patient admitted for L1 compression fracture s/p vertebroplasty by IR. Pain controlled. Patient will be continued on steroids for ITP and his plat count appears normal. Constipation dulcolax suppository with relief. Cont pain meds. PT consult for dc planning likely STR. resume home meds. Patient is medically stable for discharge.
--- NOTE | 2017-11-01 11:34 | INTERVENTIONAL RADIOLOGY RPT ---
PROCEDURE: Fluoroscopically guided L1 vertebral augmentation CLINICAL HISTORY: 82-year-old male who suffered an L1 compression fracture after a fall 5 days ago. INTERVENTIONAL RADIOLOGIST: Collin Hogue M.D. COMPARISON IMAGING: CT thoracic/lumbar spine 10/29/2017 MEDICATION: -Sedation services were provided by the anesthesia department. Please see their note for detailed findings. -15 mL's of 1% lidocaine utilized for local anesthetic. FLUOROSCOPY TIME: 11.6 minutes DOSE AREA PRODUCT: 64.5 Gy-cm2 (clemons-centimeter squared) TECHNIQUE: Informed consent was obtained from the patient prior to the procedure. During this process, the procedure and potential alternatives were explained along with the intended outcome and benefits. The risks of the procedure, including the possibility of an unsuccessful procedure, as well as the risk of not doing the procedure were discussed. The patient was given the opportunity to ask questions regarding the procedure and appeared competent to make medical decisions. A signed consent form which documents this discussion was placed in the medical record. Following informed consent the patient was placed prone on the fluoroscopic table. A timeout procedure was performed. Sedation was induced by the anesthesia department. The back was prepped and draped in usual sterile fashion. A small skin neck was made at the appropriate level after PA and lateral fluoroscopy was utilized for targeting of the abnormal vertebral body. A transpedicular approach was utilized. Triangulation was performed. A standard Dfine 10.5-gauge needle introducer cannula was utilized. This was placed through the pedicle. Great care was utilized to avoid adjacent structures. The posterior wall of the vertebral body was traversed. After final positioning of the working cannula under fluoroscopic guidance, the introducer 10.5-gauge needle stylette was removed. Under fluoroscopic guidance, an initial cavity was created within the vertebral body by inserting a straight hollow coring cement staging osteotome into the working cannula and then into the anterior third of the vertebral body. This allowed coring and removal of cancellous bone creating a cavity within the vertebral body. A larger directional staging osteotome was then inserted through the working cannula and across the midline to specific areas within the vertebral body as the cavity was enlarged. The articulated arm was then deployed to further enlarge the cavity. The device was then withdrawn into the working cannula rotated and reinserted and articulated multiple times to enlarge the existing cavity of the L1 vertebral body. The controller from the [employer] system was turned on. The warming cartridge, delivery cables and hydraulic assembly was connected to the controller. The bone cement was mixed and the cement cartridge was filled and attached to the warming cartridge. After removal of the introducer stylette, the locking delivery cannula was attached to the cement. This was then inserted through the working cannula and into the cavity created within the vertebral body. This was then locked in place with the working cannula to establish and stabilize its position. The bone cement was converted to a ultra-high viscosity, semi-solid material and was driven through the warming cartridge. The Ultra-high viscosity cement was delivered through the locking delivery cannula to fill the cavity created by the osteotome. The mass of the ultra high viscosity cement continued to grow at 1.3 cc/minute. This expanded the cavity size while filling it. The cement was allowed to interdigitate within the fractures within the vertebral body. The cement injection was terminated after the mass of Ultra-high viscosity cement was used to interdigitate L1 and adequately fill the cavity. The locking cannula was then removed. Great care was utilized to not displace cement during removal. Great care was also utilized to avoid passing the cement through the fractures into the disc spaces. Great care was also utilized to prevent cement from passing into the spinal canal cavity. A total of 8 mL of the cement was placed into the vertebral body. This was placed in the appropriate position across the midline. The introducer was placed into the cannula to tap out the remaining cement. The needle introducer cannula was then removed. Glue was placed over the wound site after good hemostasis was achieved through manual pressure. The patient tolerated the procedure well. The patient was discharged from the department in good condition after appropriate monitoring. The patient will followup in one month. FINDINGS: There is an L1 vertebral body fracture. The superior endplate appears fractured. Successful L1 vertebral body vertebral augmentation. The bone cement appears in good position and across the midline using standard technique. COMPLICATIONS: None. IMPRESSION: Successful L1 vertebral body augmentation. PLAN: The patient will follow-up with interventional radiology in approximately one month.
[2017-11-01 12:40] VITALS: BP 148/82
== END 2017-11-01 14:40 | DRG 516 ==
LOC: ERH 09:18 → ERHI 14:07 → 2NB 14:07 → ENRESERV 16:25 → 2NB 18:15 → ENTRNSPT 18:15 → EDTRNSPT 18:24 → EDTRNSPTSTS 18:24 → 2NB 18:37 → CMPTRNSPT 18:53 → ENPENDDIS 11-01 13:40 → 2NB 11-01 14:40
PROVIDERS: Emergency Medicine; Internal Medicine; Radiology Vascular & Interventional Radiology
PROC: 0QS03ZZ Reposition Lumbar Vertebra, Percutaneous Approach (ICD-10-PCS; principal; 2017-10-31)
PROC: 0QU03JZ Supplement Lumbar Vertebra with Synthetic Substitute, Percutaneous Approach (ICD-10-PCS; 2017-10-31)
DX: S32.010A Wedge compression fracture of first lumbar vertebra, initial encounter for closed fracture (principal); D69.3 Immune thrombocytopenic purpura; F03.90 Unspecified dementia, unspecified severity, without behavioral disturbance, psychotic disturbance, mood disturbance, and anxiety; E03.9 Hypothyroidism, unspecified; E78.5 Hyperlipidemia, unspecified; D72.829 Elevated white blood cell count, unspecified; S42.002A Fracture of unspecified part of left clavicle, initial encounter for closed fracture; S42.032A Displaced fracture of lateral end of left clavicle, initial encounter for closed fracture; W19.XXXA Unspecified fall, initial encounter; I25.10 Atherosclerotic heart disease of native coronary artery without angina pectoris; Z85.819 Personal history of malignant neoplasm of unspecified site of lip, oral cavity, and pharynx; Z92.3 Personal history of irradiation; I25.2 Old myocardial infarction; Z92.21 Personal history of antineoplastic chemotherapy
CPT/HCPCS: 04007; 2NBSP; 36592; 71045; 73030-LT; 73502-LT; 73562-LT; 81001; 82436; 87804; 87804-59; 93005; 93010; 96374; 96375; 97116-GO; 97161-GP; 97530-GO; J0131; J1720; J7512